=== PATIENT | male | born 1945 | race Caucasian/White ===

== ENCOUNTER 2017-11-17 04:12 | Outpatient (CLI) | payer MEDICARE | END 2017-11-17 23:59 | disposition home or self-care (01) | LOC: DIABETIC 04:12 | PROVIDERS: ATTEND Specialist | DX: E11.9 Type 2 diabetes mellitus without complications (principal) | CPT/HCPCS: G0108 ==

== ENCOUNTER 2018-02-09 03:35 | Outpatient (CLI) | payer MEDICARE | END 2018-02-09 23:59 | disposition home or self-care (01) | LOC: DIABETIC 03:35 | PROVIDERS: ATTEND Specialist | DX: E11.9 Type 2 diabetes mellitus without complications (principal) | CPT/HCPCS: G0108 ==

== ENCOUNTER 2018-05-24 01:21 | Outpatient (CLI) | payer MEDICARE | END 2018-05-24 23:59 | disposition home or self-care (01) | LOC: DIABETIC 01:21 | PROVIDERS: ATTEND Specialist | DX: E11.9 Type 2 diabetes mellitus without complications (principal) | CPT/HCPCS: G0108 ==

== ENCOUNTER 2018-08-30 01:55 | Outpatient (CLI) | payer MEDICARE | END 2018-08-30 23:59 | disposition home or self-care (01) | LOC: DIABETIC 01:55 | PROVIDERS: ATTEND Specialist | DX: E11.9 Type 2 diabetes mellitus without complications (principal) | CPT/HCPCS: G0108 ==

== ENCOUNTER 2018-11-30 01:24 | Outpatient (CLI) | payer MEDICARE | END 2018-11-30 23:59 | disposition home or self-care (01) | LOC: DIABETIC 01:24 | PROVIDERS: ATTEND Specialist | DX: E11.9 Type 2 diabetes mellitus without complications (principal); Z79.84 Long term (current) use of oral hypoglycemic drugs; Z79.4 Long term (current) use of insulin | CPT/HCPCS: G0108 ==

== ENCOUNTER 2021-09-03 11:49 | Outpatient (CLI) | payer MEDICARE | END 2021-09-03 23:59 | disposition home or self-care (01) | LOC: CARD DIAG 11:49 | PROVIDERS: ATTEND Internal Medicine Cardiovascular Disease | DX: R07.9 Chest pain, unspecified (principal); R06.02 Shortness of breath | CPT/HCPCS: 93306 ==